=== PATIENT | female | born 1965 | race Caucasian/White ===

== ENCOUNTER 2021-02-24 15:56 | Emergency (ER) | payer BC ==
[2021-02-24 17:27] VITALS: BP 110/79; PULSE 107; RESP 20; TEMP 101.7
--- NOTE | 2021-02-24 17:27 | ED ---
General Adult HPI - General Stated complaint: Covid+ - Sent by PCP - History of Present Illness Initial comments: 55-year-old female resents to the emergency department with a chief complaint of cough, congestion and myalgias. Patient reports she was diagnosed with Covid on 02/14/21. States she has been having symptoms starting the next day. Patient reports a nonproductive cough and congestion. She does report occasional dyspnea especially after having a coughing fit. She does report chills and fevers. Denies any chest pain. Reports taking Tylenol and Motrin. Denies any abdominal or back pain. Denies any nausea vomiting diarrhea. - Related Data Allergies Allergy/AdvReac Type Severity Reaction Status Date / Time Sulfa (Sulfonamide Allergy Rash/Hives Verified 02/24/21 17:27 Antibiotics) Review of Systems ROS Statement: Those systems with pertinent positive or pertinent negative responses have been documented in the HPI. ROS Other: All systems not noted in ROS Statement are negative. General Exam Limitations: no limitations General appearance: alert, in no apparent distress Head exam: Present: atraumatic, normocephalic, normal inspection Eye exam: Present: normal appearance, PERRL, EOMI Pupils: Present: normal accommodation ENT exam: Present: normal exam, normal oropharynx, mucous membranes moist, TM's normal bilaterally, normal external ear exam Neck exam: Present: normal inspection, full ROM. Absent: tenderness Respiratory exam: Present: normal lung sounds bilaterally. Absent: respiratory distress, wheezes, rales, rhonchi, stridor, chest wall tenderness, accessory muscle use Cardiovascular Exam: Present: regular rate, normal rhythm, normal heart sounds. Absent: bradycardia Extremities exam: Present: normal inspection, full ROM, normal capillary refill. Absent: tenderness, pedal edema, joint swelling Back exam: Present: normal inspection, full ROM. Absent: tenderness, CVA tenderness (R), CVA tenderness (L) Neurological exam: Present: alert, oriented X3, normal gait Psychiatric exam: Present: normal affect, normal mood Skin exam: Present: warm, dry, intact, normal color Course Vital Signs 02/24/21 17:22 Temperature 101.7 F H Pulse Rate 107 H Respiratory 20 Rate Blood Pressure 110/79 O2 Sat by Pulse 97 Oximetry Medical Decision Making - Medical Decision Making 55-year-old female presents to emergency department with chief complaint of cough and congestion. On physical examination, patient is resting comfortably and does not appear to be in any respiratory distress. She is febrile on arrival and slightly tachycardic but not hypoxic. Chest x-ray reveals a mild diffuse opacity which could represent atelectasis or developing infiltrates. Patient is positive for Covid. She does not fit criteria for monoclonal antibody. Advised her to continue with the Tylenol Motrin home. She was given Tylenol here. No chest pain or shortness of breath. Advised to return to the emergency department if symptoms worsen. Advised to quarantine. Case discussed with Dr. Morrison. Disposition Clinical Impression: COVID-19 Disposition: HOME SELF-CARE Condition: Stable Instructions (If sedation given, give patient instructions): Coronavirus Disease 2019 (COVID-19) Additional Instructions: Please return to the Emergency Department if symptoms worsen or any other concerns. Quarantine for 10 days since you tested positive. Take Tylenol Motrin for fever. Is patient prescribed a controlled substance at d/c from ED?: No Referrals: Clara Landaverde MD [Primary Care Provider] - 1-2 days Time of Disposition: 19:21
--- NOTE | 2021-02-24 18:14 | XR ---
EXAMINATION TYPE: XR chest 2V DATE OF EXAM: 02/24/2021 COMPARISON: NONE HISTORY: Cough and fever. TECHNIQUE: Frontal and lateral views of the chest are obtained. FINDINGS: There is diffuse mild hazy opacity. No pleural effusion, or pneumothorax seen. The cardia c silhouette size is within normal limits. The osseous structures are intact. IMPRESSION: Mild opacity may represent atelectasis or developing infiltrates.
[2021-02-24] MEDS ORDERED: ACETAMINOPHEN TAB 500 MG TAB PO STA (19:26)
[2021-02-24] MEDS ORDERED: IBUPROFEN 600 MG TAB PO STA (19:26)
== END 2021-02-24 19:36 | disposition home or self-care (01) ==
LOC: EC 15:56
DX: U07.1 COVID-19 (principal)
CPT/HCPCS: 71046; 99284